=== PATIENT | male | born 2000 | race Two or more races ===

== ENCOUNTER 2023-12-26 12:03 | Emergency (ER) | payer OTHER ==
[~2023-12-26] VITALS: Ht 177.8 cm; Wt 73.2 kg
[2023-12-26] MEDS ORDERED: LORA-1126 PO (13:59)
[2023-12-26] MEDS ORDERED: DIPH25CA66 PO (13:59)
[2023-12-26] MEDS ORDERED: METH4PAK PO (13:59)
[2023-12-26] MEDS ORDERED: TRIO1TP EX (13:59)
[2023-12-26 14:01] VITALS: BP 137/78; PULSE 77; RESP 17; TEMP 98.7; O2SAT 97
== END 2023-12-26 14:04 | disposition home or self-care (01) ==
LOC: ER 12:13
DX: T78.40XA Allergy, unspecified, initial encounter (principal); X58.XXXA Exposure to other specified factors, initial encounter